=== PATIENT | female | born 1945 | race Hispanic/Latino ===

== ENCOUNTER 2024-07-20 18:10 | Emergency (ER) | payer MEDICARE ==
[~2024-07-20] VITALS: Ht 172.7 cm; Wt 71.8 kg
[2024-07-20] MEDS ORDERED: IBLOOD GLUCOSE TEST STRIP 1 EA TEST XX ONE (19:15)
[2024-07-20 19:49] LABS: BASOPHILS 0.6 % (0-2); EOSINOPHILS 1.9 % (0-6); HEMATOCRIT 36.2 % (35.0-50.0); LYMPHOCYTES 31.2 % (24-44); MCH 31.3 (27-36); MCHC 33.3 g/dl (30-36); MCV 94.1 fl (81-99); MONOCYTES 10.8 % (0-12); NEUTROPHILS 55.5 % (39-80); PLATELET COUNT 325 K/uL (140-440); RBC 3.84 M/ul (4.3-5.7); RDW 12.9 (10.5-15.0)
[2024-07-20 20:05] LABS: ALBUMIN 2.7 g/dL (3.4-5.0); ALBUMIN/GLOBULIN RATIO 0.69 (1.1-2.4); ANION GAP 8.1 (7-21); BILIRUBIN, TOTAL 0.3 ng/dL (0.2-1.0); BUN/CREATININE RATIO 8.53 (6.0-28.6); CREATININE, SERUM 0.82 mg/dL (0.55-1.02); MAGNESIUM 1.5 mg/dL (1.8-2.4); POTASSIUM 3.1 mmol/L (3.5-5.1); PROTEIN, TOTAL 6.6 g/dL (6.4-8.2)
[2024-07-20 20:23] LABS: BILIRUBIN, URINE NEGATIVE (negative); BLOOD/HGB, URINE TRACE-I (Negative); KETONE, URINE NEGATIVE (Negative); LEUK ESTERASE, URINE NEGATIVE (negative); NITRITE, URINE NEGATIVE (negative)
[2024-07-20 20:29] LABS: EPITHELIAL CELLS, URINE SQUAMOUS 1+ /lpf (0-1+)
[2024-07-20 20:30] LABS: BACTERIA, URINE RARE /hpf (negative); CASTS, URINE NONE SEEN \\lpf; COLLECTION TYPE, URINE CLEAN CATCH; CRYSTALS, URINE NONE SEEN (0-1+); REFLEX CULTURE, URINE No (No)
[2024-07-20] MEDS ORDERED: ASPIRIN 325 MG TAB PO ONE (22:30)
[2024-07-20 22:44] VITALS: BP 136/78
--- NOTE | 2024-07-21 12:01 | EKG ---
[facility] [address] [place] [address] Signed Normal sinus rhythm Left ventricular hypertrophy with repolarization abnormality ( R in aVL ) Abnormal ECG No previous ECGs available Confirmed by Ramya Tovar MD ([id number]) on 07/21/2024 12:00:55 PM Electronically Signed By: RAMYA TOVAR DO 07/21/24 1201 PATIENT NAME: MARIANA DANGELO Electrocardiogram DATE OF : 47 PHYSICIAN: RAMYA TOVAR DO REPORT #: [id number] REPORT IS CONFIDENTIAL AND NOT TO BE RELEASED WITHOUT AUTHORIZATION
== END 2024-07-20 22:45 | disposition home or self-care (01) ==
LOC: ED 18:10
PROVIDERS: Emergency Medicine
DX: R42 Dizziness and giddiness (principal); R79.89 Other specified abnormal findings of blood chemistry; I10 Essential (primary) hypertension; R73.03 Prediabetes; Z88.8 Allergy status to other drugs, medicaments and biological substances
CPT/HCPCS: 36415; 70450; 71260; 80053; 81001; 83735; 84484; 85025; 85379; 93005; 93010; 99284-25; Q9967